=== PATIENT | male | born 1960 | race Caucasian/White ===

== ENCOUNTER 2019-08-17 13:59 | Inpatient (IN) | payer MEDICAID, OTHER ==
[~2019-08-17] VITALS: Ht 180.3 cm; Wt 95.7 kg
[2019-08-17 15:18] LABS: BASOPHILS % 1.3 % (0.0-2.0); EOSINOPHILS % 7.3 % (0.0-5.0); HEMATOCRIT. 33.9 % (42.0-52.0); HEMOGLOBIN. 10.9 g/dL (14.0-18.0); LYMPHOCYTES % 17.5 % (20.0-50.0); MEAN CORPUSCULAR HEMOGLOBIN 24.2 pg (28.0-32.0); MEAN PLATELET VOLUME 8.2 fl (7.4-10.4); MONOCYTES % 8.2 % (2.0-8.0); NEUTROPHILS % 65.7 % (40.0-76.0); PLATELET 271 x1000/uL (130-400); RED BLOOD CELL COUNT 4.52 mill/uL (4.7-6.1); RED CELL DISTRIBUTION WIDTH 16.1 % (11.6-14.6)
[2019-08-17 15:25] LABS: CHLORIDE 113 mEq/L (98-107)
[2019-08-17] MEDS ORDERED: ATORVASTATIN CALCIUM 40MG TABLET PO ONE (17:00)
[2019-08-17] MEDS ORDERED: ONDANSETRON HCL 4MG/2ML INJ IV PRN (17:00)
[2019-08-17] MEDS ORDERED: ACETAMINOPHEN 325MG TABLET PO PRN (17:00)
[2019-08-17] MEDS ORDERED: HYDRALAZINE 20MG/ML VIAL IV PRN (17:00)
[2019-08-17] MEDS ORDERED: NITROGLYCERIN 0.4MG TABLET SL SL PRN (17:00)
[2019-08-17] MEDS ORDERED: HEPARIN 5000 UNITS/ML VIAL SUBCUT NR (21:30)
[2019-08-17 23:00] VITALS: BP_SYST 132; BP_SYST 134; BP_DIAS 60
[2019-08-18] MEDS ORDERED: ATORVASTATIN CALCIUM 40MG TABLET PO NR
[2019-08-18 04:00] VITALS: BP 103/46
[2019-08-18 07:28] LABS: CHLORIDE 111 mEq/L (98-107)
[2019-08-18 07:29] LABS: BASOPHILS % 1.5 % (0.0-2.0); EOSINOPHILS % 8.1 % (0.0-5.0); HEMATOCRIT. 31.3 % (42.0-52.0); HEMOGLOBIN. 10.2 g/dL (14.0-18.0); MEAN CORPUSCULAR HEMOGLOBIN 24.3 pg (28.0-32.0); MEAN CORPUSCULAR VOLUME 74.4 fL (80.0-94.0); MEAN PLATELET VOLUME 8.9 fl (7.4-10.4); MONOCYTES % 8.7 % (2.0-8.0); NEUTROPHILS % 62.7 % (40.0-76.0); PLATELET 239 x1000/uL (130-400); RED BLOOD CELL COUNT 4.21 mill/uL (4.7-6.1)
[2019-08-18 07:35] LABS: LDL CHOLESTEROL 86 mg/dL (5-100)
[2019-08-18 07:36] LABS: HDL CHOLESTEROL 28 mg/dL (40-59)
[2019-08-18] MEDS ORDERED: REGADENOSON 0.4 MG/5 ML IV ONE (07:45)
[2019-08-18] MEDS: HEPARIN 5000 UNITS/ML VIAL SUBCUT SCH ×2 (09:00→20:08)
[2019-08-18 12:00] VITALS: BP 131/73
[2019-08-18] MEDS ORDERED: ASPIRIN 81MG TABLET PO SCH (14:00)
[2019-08-18 16:00] VITALS: BP 122/18
[2019-08-18 20:00] VITALS: BP 125/80
[2019-08-19] VITALS: BP 97/50
[2019-08-19 04:00] VITALS: BP 120/66
== END 2019-08-19 08:16 | disposition left against medical advice (07) | DRG 203 ==
LOC: ER 13:59 → 7WST 16:37 → EDBEDREQ 16:41 → ENRESERV 22:10
PROVIDERS: ADMIT Internal Medicine; ATTEND Internal Medicine
DX: M94.0 Chondrocostal junction syndrome [Tietze] (principal); E44.0 Moderate protein-calorie malnutrition; E87.5 Hyperkalemia; I10 Essential (primary) hypertension; Z53.29 Procedure and treatment not carried out because of patient's decision for other reasons; R55 Syncope and collapse; Z82.49 Family history of ischemic heart disease and other diseases of the circulatory system; Z83.1 Family history of other infectious and parasitic diseases
CPT/HCPCS: 36415; 71045; 80053; 80061; 83036; 83735; 83880; 84484; 85025; 93005; 93306; 99285; A9500; J1644